=== PATIENT | male | born 1985 | race Caucasian/White ===

== ENCOUNTER 2022-11-18 15:04 | Outpatient (CLI) | payer OTHER, SELFPAY ==
--- NOTE | 2022-11-18 15:28 | ECG_ITS ---
Measurements Intervals [place] Rate: 79 P: WI: 0 QRS: 5 QRSD: 87 T: 10 QT: 365 QTc: 420 Interpretive Statements SINUS RHYTHM MINIMAL VOLTAGE CRITERIA FOR LVH, CONSIDER NORMAL VARIANT [MEETS CRITERIA IN ONE OF: R(aVL), S(V1), R(V5), R(V5/V6)+S(V1)] NO PREVIOUS ECG AVAILABLE FOR COMPARISON Electronically Signed On 11-19-2022 12:11:14 CDT by Adalberto Kenney M.D.
== END 2022-11-18 15:05 | disposition home or self-care (01) ==
PROVIDERS: PCP Internal Medicine; Visit Provider Surgery
DX: E78.00 Pure hypercholesterolemia, unspecified (principal); K40.90 Unilateral inguinal hernia, without obstruction or gangrene, not specified as recurrent
CPT/HCPCS: 36415; 86850; 86900; 86901; 93005

== ENCOUNTER 2022-11-20 00:57 | Day surgery (SDC) | payer OTHER, SELFPAY ==
[2022-11-14 08:37] VITALS: BMI 46.7
--- NOTE | 2022-11-14 08:41 | PC.NURSE ---
Report to the Outpatient Waiting Room, entrance under the green pavilion located off [facility], at time 11:00 on date 11/20/22. Planned Procedure Time: 12:00. Time changes happen often and if your time is changed the preop area will call you the afternoon before. - You and your visitor will be asked to self-screen and do not enter if you have any COVID symptoms. - A mask is optional within the hospital at this time. Patients may have clear liquids (water, carbonated beverages, clear teas, apple juice) until 3 hours prior to surgery (10:00) with a maximum of 20 ounces. - No food from midnight until time of surgery Take the following medications with a SIP of water the morning of surgery: N/A DO NOT STOP ANY OF YOUR OTHER PRESCRIPTION MEDICATIONS PRIOR TO SURGERY ?EXCEPT THE FOLLOWING Medications to discontinue per physician: N/A Date to take last dose: N/A Please no make-up, nail scottish, hairspray, perfume, deodorant, or body powder the day of surgery. No jewelry (including any body piercings) or valuables the day of surgery, leave them at home. Please take a shower or bath the night before, or the morning of, surgery with an antibacterial soap (HIBICLENS). Wear comfortable, loose fitting clothing. - Jewelry must be removed prior to entering the operating room. Rings and piercings that are not removed may be cut off. - The hospital will not accept responsibility for valuables. - Please leave all valuables, including medications, at home the day of surgery. If you are going home after surgery, a licensed van cdl driver must drive you home. - NO public transportation without another adult if you receive anesthesia. - We recommend that an adult stay with you for 24 hours following discharge. - We also recommend that you do not drive, make important decision, drink alcoholic beverages, or take any drugs that were not prescribed by your health care provider for at least 24 hours after your discharge time. Follow any additional instructions given to you from your surgeon. If you or anyone in your household have experienced Covid symptoms in the past week, please notify your surgeon or the nurse liaison at the phone number below for possible testing. Telephone instructions given to PT - HARIKA LENZ and asked if any additional questions and then verbalized understanding. Patient advised to call surgeon office or pre surgery nurse liaison [phone] if any additional questions.
[2022-11-20] VITALS (11 sets, daily range): BP systolic 121–164; BP diastolic 66–93; PULSE 80–107; RESP 16–22; TEMP 35.3–37.3; O2SAT 93–100
[2022-11-20] MEDS: LACTATED RINGERS 1,000 ML 30 ML IV CONT ×2 (12:00→17:09)
[2022-11-20] MEDS: KETOROLAC 15 MG/ML VIAL (*BKC) IV PUSH (12:00)
[2022-11-20] MEDS: ACETAMINOPHEN 500 MG TABLET 1000 MG PO (12:00)
--- NOTE | 2022-11-20 12:20 | P.PNAN_ITS ---
Anes - Initial Pre Proc Eval Procedure: Operation Date: 11/20/22 13:00 Proposed Procedures p Laparoscopic Right Inguinal Hernia Repair with Mesh, Davinci Assisted - Keyur Hanks DO Date/Time: 11/20/22 12:20 Surgeon: Keyur Hanks DO Pre Op Diagnosis: Rt Ing Hernia Patient Data Age: 37 Gender: M Height: 1.78 m Weight: 148 kg Allergies Allergy/AdvReac Type Severity Reaction Status Date / Time No Known Drug Allergies Allergy Mild Unknown Verified 11/14/22 08:36 Home Medications Medication Instructions Recorded Confirmed Type No Home Medications 01/15/19 11/14/22 History Patient hx anesthesia problems: none Family hx anesthesia problems: none Results Review: All pre-operative results and documents have been reviewed as part of the pre- operative evaluation. 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 Informed Consent: The patient's anesthetic plan and its attendant risks and benefits were discussed with the patient/family/POA. Questions were solicited and answers provided to the satisfaction of the patient/family/POA.
--- NOTE | 2022-11-20 12:28 | WPDHPUPDATE1 ---
History and Physical Update Update Date/Time: 11/20/22 12:28 History and Physical has been reviewed, including an updated exam of the patient. There are NO changes in the patient's condition. Risks, benefits, and alternatives have been discussed and questions answered. Patient agrees to proceed with procedure.
--- NOTE | 2022-11-20 12:29 | PM.IMHP ---
H&P: HPI History of Present Illness Date/Time: 11/20/22 12:29 Chief Complaint: Right inguinal hernia Narrative: This is a 37-year-old man who presents for right inguinal hernia repair. He reports no changes since last seen in the office. Review of Systems Review of Systems: All systems reviewed & are unremarkable except as noted in HPI and below Constitutional: Constitutional: Denies chills, Denies fever(s), Denies headache(s) and Denies weight loss Eyes: Eyes: Denies change in vision ENT: Denies dizziness, Denies headache(s), Denies neck mass and Denies throat swelling Cardiovascular: Cardiovascular: Denies chest pain, Denies lightheadedness and Denies dyspnea Respiratory: Respiratory: Denies cough, Denies dyspnea and Denies wheezing Gastrointestinal: Gastrointestinal: Denies abdominal pain, Denies change in bowel habits, Denies nausea and Denies vomiting Genitourinary: Genitourinary: Denies hematuria and Denies dysuria Musculoskeletal: Musculoskeletal: Reports as per HPI Integumentary/Breasts: Skin/Breast: Reports as per HPI Neurologic: Denies dizziness and Denies headache(s) Allergic/Immunologic: Allergic/Immunologic: Denies throat swelling and Denies wheezing PMFSH Past Medical History Medical History (Updated 11/20/22 @ 12:24 by Joseph Sutherland MD) GERD (gastroesophageal reflux disease) Hyperlipidemia Morbid obesity Snoring Family History Family History Other Cerebrovascular accident Hypertension Social History Social History Smoking status: Never smoker Alcohol intake: current Alcohol use details: VERY RARE Substance use: current Substance use type: marijuana Living arrangements: with family Occupation/Education: occupation 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 Gender identity (if verbalized by the patient): Male Spiritual care concerns: No Meds Home Medications and Allergies Home Medications Medication Instructions Recorded Confirmed Type No Home Medications 01/15/19 11/20/22 History Allergies Allergy/AdvReac Type Severity Reaction Status Date / Time No Known Drug Allergies Allergy Mild Unknown Verified 11/20/22 12:27 Exam Const: General: no acute distress and alert Orientation/consciousness: patient oriented x3 HENMT: Head: normocephalic and atraumatic Ears: hearing grossly normal bilaterally Face/Nose/Sinus: Normal nares present Mouth: Yes Normal oral and palatal mucosa present Eyes: Periorbital: periorbital findings normal Sclera: sclerae normal EOM: EOMs intact bilaterally Neck: Neck: normal visual inspection, no lymphadenopathy and trachea midline Chest: Chest palpation & inspection: normal inspection of the chest Resp: Effort & Inspection: normal respiratory effort Auscultation: clear to auscultation bilaterally Cardio: Jugular venous distension: no JVD Rate: regular rate Rhythm: regular rhythm Heart sounds: S1 normal heart sound present and S2 normal heart sound present Peripheral pulses: Peripheral pulses 2+ throughout GI: Inspection: normal to inspection GI Palp: Yes Soft to palpation, No Tenderness to palpation present (GI), No Guarding due to palpation present (GI) and No Rebound tenderness present Percussion: Yes normal to percussion Auscultation: normal bowel sounds : General: Yes no CVA tenderness Scrotum: inguinal hernia on the right Back/Spine/Pelvis: Back: no CVA tenderness Neuro: General: patient oriented x3, no focal motor deficits and CN's II-XI intact bilaterally Cognition (Neuro): normal cognition Speech: normal speech Motor exam (neuro): 5/5 motor strength present throughout Extrem: General: capillary refill normal and no clubbing, cyanosis or edema Assessment and Plan Assessment and plan (1) Right inguinal hernia: Code(s): K40.90 - Unilateral inguina
[2022-11-20] MEDS: ceFAZolin 2 GM/D5W 50 ML 2 GM/50 ML BAG IVPB ×2 (13:04→20:30)
[2022-11-20] MEDS: ceFAZolin 1 GM/NS 50 ML 1 GM/50 ML BAG IVPB (13:14)
[2022-11-20] MEDS: BUPIVACAINE/EPINEPHRINE 0.5% 50 ML VIAL 30 ML INFILTRATE (13:40)
--- NOTE | 2022-11-20 15:59 | WPDURCON ---
Assessment and Plan Assessment and plan (1) Laceration of bladder: Code(s): S37.23XA - Laceration of bladder, initial encounter Status: Acute Assessment and Plan: Intraoperative robotic assisted repair of cystotomy Urology Consult Note HPI Date Seen: 11/20/22 Time Seen: 16:00 Requesting Physician: Keyur Hanks DO Primary Care Provider: Horacio Mtz, MD Consult Narrative Reason for consult: Intraoperative cystotomy Narrative: Lalo Fair is a 37 year old male was undergoing a robotic assisted right inguinal hernia repair. He had significant adhesions of his bladder to the inguinal area. It was noted by Dr. Fink that there was a cystotomy during the dissection. It measured 2-3 inches. I am asked to evaluate and performed the closure of this intraoperatively. 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
--- NOTE | 2022-11-20 16:02 | W.PM.PROC2 ---
Procedure Note - Detailed Date of Procedure 11/20/22 Pre-op Diagnosis Rt Ing Hernia-cystotomy/bladder laceration Post-op Diagnosis Same Procedure Performed Robotic assisted closure of cystotomy Surgeon Vinnie Narayan MD Anesthesia General Description of Procedure Patient is undergoing a robotic assisted hernia repair with mesh. It was noted during the dissection that he had a cystotomy. A mass to close this area. Patient is already under anesthetic. At this point time a 2-3 cm laceration/cystotomy was noted near the dome of the bladder. He had extensive fibrotic tissue and fat around dome of the bladder. I dissected off and trimmed some of this. The cystotomy was visualized. Daniels catheter had been placed with the balloon visible near the bladder neck. The closure was then performed a 2 layer closure. I used 3-0 V lock suture in a running fashion. This encompasses the muscle and mucosa of the bladder. The 2nd line of closure encompass the fat and some muscle externally. The bladder was filled with 300 cc of indigo colored irrigation. There was no evidence of extravasation. At this point time his hernia repair was to be completed. This will be dictated separately. Patient will be kept overnight. A cystogram will be performed in approximately 10 days. If there was no extravasation the catheter can be removed. This completes dictation please send a copy of this op note to my office Estimated Blood Loss 0 Drains Yes (Daniels catheter) Packing No Pathology None sent Complications No immediate complications Condition Stable Disposition PACU
--- NOTE | 2022-11-20 16:58 | W.PM.PROC2 ---
Procedure Note - Detailed Date of Procedure 11/20/22 Pre-op Diagnosis Right inguinal hernia Post-op Diagnosis Other (Incarcerated right indirect inguinal hernia, bladder laceration) Procedure Performed Laparoscopic incarcerated right inguinal hernia repair with mesh, da Rose assisted Surgeon Keyur Hanks, DO Anesthesia General and Local (0.5% bupivacaine with epinephrine) Indications This is a 37-year-old man who presented with a right inguinal hernia that he 1st noticed several years ago. It was becoming progressively larger. He does notice some discomfort after work when he is doing a lot of lifting, but in general does not have a lot of pain with this. He was having some urinary difficulties off and on as well. He was found to have a large right inguinal hernia extending into his scrotum. Discussions were made with the patient about treatment options and decision was made to proceed with robotic assisted laparoscopic right inguinal hernia repair with mesh. Findings Laparoscopic right inguinal hernia repair was performed. The patient was found to have a very large indirect right inguinal hernia. The herniated contents were difficult to reduce when patient was under anesthesia. Upon inspecting the abdomen laparoscopically, there did not appear to be any bowel incarcerated with the hernia, however the hernia sac was very tethered into the hernia defect. As I was taking down the hernia sac there did appear to be a large amount of preperitoneal fat which was making it difficult to identify the other structures near the hernia sac. I eventually was able to identify the testicular vessels and vas deferens and dissect these off of the hernia sac. I still was unable to get the hernia sac completely reduced and as I was continuing to carefully dissect this area I did inadvertently create a cystotomy on a portion of the bladder that was incarcerated within the hernia defect. After this was noted I called Urology to evaluate the patient. I continued to reduce the hernia sac and had this completely reduced by the time urology came in to evaluate patient. Dr. Narayan then proceeded with robotic repair of cystotomy. Please refer to his operative report for his details. I then chose to complete the hernia repair once he was done. An extra-large right 3DMax mid mesh was placed within the preperitoneal pocket. This was secured using 3-0 Vicryl simple interrupted sutures. The peritoneal flap was somewhat torn from all the dissection of the hernia sac and repair of cystotomy. I closed the peritoneal flap with multiple 3-0 V lock running absorbable sutures. The hernia sac that was excised to clear off the bladder for repair was removed and sent to the lab for pathology. Description of Procedure Procedure as well as risks, benefits, and alternatives were discussed with the patient. Written consent was obtained and placed in chart prior to procedure. Patient was brought back to surgical suite. He was placed supine on operating table. Time-out was done to confirm patient and procedure. He was then intubated by Anesthesia Department. His abdomen was prepped and draped in sterile fashion using chlorhexidine prep. 0.5% bupivacaine with epinephrine was infiltrated at each location for incision. An 8 mm incision was made in the left lateral abdomen, and a 5 mm Optiview trocar was advanced through the abdominal layers under direct visualization. Once inside the abdominal cavity, carbon dioxide insufflation was used to create a pneumoperitoneum. A camera was inserted and the abdominal cavity was inspected. The patient was placed in slight Trendelenburg position. An 8 millimeter incision was made on the right lateral abdomen and an 8 millimeter trocar was inserted under direct visualization. Another 8 millimeter incision was made just superior to the umbilicus and an 8 millimeter trocar was inserted under direct visualization. The 5 mm port was then removed and this
--- NOTE | 2022-11-20 17:42 | SUR.PHASEI ---
1740-Dr. Hanks at [facility] to talk with pt.
--- NOTE | 2022-11-20 18:21 | ADMGEN ---
This patient, Lalo Fair, was admitted to Medical Room 250-01. Patient/family oriented to hospital policies and general routines including ID bracelet, bed and alarms, visiting hours, pain management, procedures, bathroom and other care routines, personal items, smoking policy, room service/diet, and visiting hours. Information on how to activate the Rapid Response Team has been discussed. Patient/Family are encouraged to report perceived risks to care and to ask questions if they do not understand what they are told or what they should do.
[2022-11-20] MEDS: LACTATED RINGERS 1,000 ML 100 ML IV CONT (18:45)
[2022-11-20] MEDS: PROPARACAINE HCL 0.5% 15 ML OPHTH SOLN 1 DROP EACH EYE (21:59)
[2022-11-20] MEDS: DICLOFENAC SODIUM 0.1% OPHTH SOLN 2.5 ML BOTTLE 1 DROP EACH EYE (22:02)
[2022-11-20] MEDS: MOXIFLOXACIN HCL 0.5% 3 ML OPHTH SOLN 1 DROP EACH EYE (22:02)
[2022-11-20] MEDS: HYDROcodone/acetaminophen (*CRX) 10-325 MG TABLET 1 TAB PO (22:05)
[2022-11-21 03:55] VITALS: BP 127/72; PULSE 90; RESP 18; TEMP 37; O2SAT 95
[2022-11-21] MEDS: ceFAZolin 2 GM/D5W 50 ML 2 GM/50 ML BAG IVPB ×2 (05:15→12:55)
[2022-11-21] MEDS: MOXIFLOXACIN HCL 0.5% 3 ML OPHTH SOLN 1 DROP EACH EYE ×2 (05:19→13:42)
[2022-11-21] MEDS: DICLOFENAC SODIUM 0.1% OPHTH SOLN 2.5 ML BOTTLE 1 DROP EACH EYE ×2 (05:19→13:41)
[2022-11-21 05:40] LABS: Hematocrit 40.4 % (42.0-52.0); Hemoglobin 13.7 g/dL (14.0-18.0); Mean Corpuscular HGB Conc 33.9 g/dl (32-36); Mean Corpuscular Hemoglobin 30.8 pg (26-34); Mean Corpuscular Volume 90.8 fl (80-100); Mean Platelet Volume 9.9 fl (7.4-10.4); Platelet Count Result 276 k/mm3 (150-375); Red Blood Count 4.45 M/mm3 (4.6-6.20); Red Cell Distribution Width 13.1 % (11.5-14.5); White Blood Count 10.6 K/mm3 (4.5-10.0)
[2022-11-21 05:52] LABS: Anion Gap 6 mmol/L (8-16); Blood Urea Nitrogen 9 mg/dL (9-20); Calcium 8.5 mg/dL (8.4-10.2); Carbon Dioxide 22 mmol/L (22-30); Chloride 109 mmol/L (98-107); Estimated CRCL calculation 184 ml/min; Estimated Glomerular Filt Rate > 60; Glucose 111 mg/dL (65-110); Sodium 137 mmol/L (137-145)
[2022-11-21 07:45] VITALS: BP 137/73; PULSE 96; RESP 17; TEMP 36.7; O2SAT 96
[2022-11-21] MEDS: HYDROcodone/acetaminophen (*CRX) 5-325 MG TABLET 1 TAB PO ×2 (08:31→17:10)
[2022-11-21] MEDS: polyethylene glycoL 3350 17 GM POWD.PACK PO (08:31)
[2022-11-21 09:45] VITALS: O2SAT 96
[2022-11-21 10:46] VITALS: O2SAT 95
[2022-11-21 12:26] VITALS: BP 148/84; PULSE 87; RESP 17; TEMP 35.8; O2SAT 96
--- NOTE | 2022-11-21 12:37 | PM.DS ---
DS: Admitting Diagnosis Discharge Date 11/21/2022 Admitting Diagnosis Incarcerated right inguinal hernia, bladder laceration DS: Discharge Diagnosis Discharge Diagnosis (1) Incarcerated right inguinal hernia: Code(s): K40.30 - Unilateral inguinal hernia, with obstruction, without gangrene, not specified as recurrent Status: Acute (2) Laceration of bladder: Qualifiers: Encounter type: initial encounter Qualified Code(s): S37.23XA - Laceration of bladder, initial encounter Code(s): S37.23XA - Laceration of bladder, initial encounter Status: Acute DS: Summary Hospital Course Reason for hospitalization: Recovery after laparoscopic incarcerated right inguinal repair Hospital Course: This is a 37-year-old man who presented for robotic assisted laparoscopic right inguinal hernia repair on 11/20/2022. The patient was found to have a very large incarcerated right inguinal hernia containing a portion of his bladder. Surgery was very difficult and a bladder laceration was encountered during the surgery. Dr. Narayan with Urology was consulted intraoperatively and he underwent robotic assisted closure of cystotomy. A Daniels catheter was left in place and decision was made to place patient in outpatient extended recovery after the procedure. On postop day 1 he was doing well and tolerating a diet. He was having some incisional pain which was controlled with oral pain meds. He was given instruction on taken care of the Daniels catheter and follow-up was arranged with urology. He was discharged home on 11/21/2022. Status at Discharge Functional status at discharge: independent ambulation Overall status at discharge: patient is progressing back to baseline Time Spent with Patient Time attestation: Total time spent providing and/or coordinating discharge services: Time spent: Less than 30 minutes Exam Const: General: no acute distress and alert Orientation/consciousness: patient oriented x3 Resp: Effort & Inspection: normal respiratory effort Auscultation: clear to auscultation bilaterally Cardio: Rate: regular rate Rhythm: regular rhythm GI: Inspection: non-distended and incision (Intact with glue) GI Palp: Yes Soft to palpation and Yes Tenderness to palpation present (GI) (incisional) Auscultation: normal bowel sounds : Scrotum: other (Slight scrotal swelling, expected postop) DS: Data Data Completed and Pending Pending studies at discharge: Pending at discharge 11/20/22 16:50 Surgical [PTH] Routine Labs on day of discharge: Labs from last 24 hours 11/21/22 05:14 WBC 10.6 H RBC 4.45 L Hgb 13.7 L Hct 40.4 L MCV 90.8 MCH 30.8 MCHC 33.9 RDW 13.1 Plt Count 276 MPV 9.9 Sodium 137 Potassium 4.0 Chloride 109 H Carbon Dioxide 22 Anion Gap 6 L BUN 9 Creatinine 0.70 Estim Creat Clear Calc 184 Estimated GFR > 60 Glucose 111 H Calcium 8.5 Discharge Plan Discharge Patient Disposition: Home, Self-Care Discharge Instructions: DISCHARGE INSTRUCTION SHEET FOR HERNIA, GALLBLADDER AND APPENDIX SURGERIES DR. KRUSE PATIENT TO TAKE HOME 1. May shower, no soaking in bath x 2weeks. 2. Call office for: Wound increasingly painful or bleeding Vomiting Fever of greater than 101 degrees 3. If no bowel movement for three days, take 1 oz. (30 ml) Milk of Magnesia or MiraLax 17g 1 to 2 times daily. 4. No heavy lifting > 10-15 pounds x 2-3 weeks for hernia repairs and 2 weeks for laparoscopic cholecystectomy or appendectomy. 5. No driving for 3 days or while taking narcotic pain medications. 6. Ice to surgical site for 48 hours (30 min on, then 30 min off). 7. Up walking 10-30 minutes three times per day. 8. Resume previous home medications. 9. Follow-up 10-14 days in office for wound check or as previously scheduled. ([phone]) 10. Oral pain medications prescription to
[2022-11-21] MEDS: HYDROcodone/acetaminophen (*CRX) 10-325 MG TABLET 1 TAB PO (12:55)
--- NOTE | 2022-11-21 13:51 | WPDANESPN ---
Anes - Prog Note Post-Op Date/Time: 11/21/22 13:51 Cardiovascular status: normal Respiratory status: normal Airway patency: baseline Mental status: baseline Post-Op hydration status: normal Vital Signs: Last Vital Signs Temp 35.8 C L 11/21/22 12:26 Pulse 87 11/21/22 12:26 Resp 17 11/21/22 12:26 BP 148/84 H 11/21/22 12:26 Pulse Ox 96 11/21/22 12:26 O2 Del Method Room Air 11/21/22 10:46 O2 Flow Rate 6 11/20/22 17:20 Pain Score (VAS): 03/29 I/O: Intake & Output 11/20/22 11/21/22 11/21/22 23:59 07:59 15:59 Intake Total 100 300 600 Output Total 600 400 Balance 100 -300 200 Laboratory Tests 11/21/22 05:14 11/21/22 05:14 11/21/22 05:14 WBC 10.6 H RBC 4.45 L Hgb 13.7 L Hct 40.4 L MCV 90.8 MCH 30.8 MCHC 33.9 RDW 13.1 Plt Count 276 MPV 9.9 Sodium 137 Potassium 4.0 Chloride 109 H Carbon Dioxide 22 Anion Gap 6 L BUN 9 Creatinine 0.70 Estim Creat Clear Calc 184 Estimated GFR > 60 Glucose 111 H Calcium 8.5 Post-procedural complaints: none Patient Feedback: Patient satisfied with anesthetic care. Other Findings: R eye irritated with sandpaper feeling last night, eye gtts ordered and pt states irritation has resolved
[2022-11-21 13:54] VITALS: BP 116/62; PULSE 99; RESP 18; TEMP 37.2; O2SAT 94
--- NOTE | 2022-11-21 16:03 | WPDUROPN2 ---
Progress Note: A&P Assessment and Plan (1) Incarcerated right inguinal hernia: Code(s): K40.30 - Unilateral inguinal hernia, with obstruction, without gangrene, not specified as recurrent Status: Acute (2) Laceration of bladder: Qualifiers: Encounter type: initial encounter Qualified Code(s): S37.23XA - Laceration of bladder, initial encounter Code(s): S37.23XA - Laceration of bladder, initial encounter Status: Acute Assessment and Plan: Keep goodwin catheter in place, get a cystogram next week, then catheter to be removed in office with Dr. Bo. No further evaluation needed. Ok to discharge at anytime. Subjective Subjective Date/Time Seen: 11/21/22 16:03 Post Op day: 1 Interval history: Robotic Assisted Cystotomy secondary to bladder laceration. Creatinine is 0.70. Pt. doing well tolerating pain, urine clear and draining to gravity in his bag. Review of Systems Review of Systems: All systems reviewed & are unremarkable except as noted in HPI and below Cardiovascular: Cardiovascular: Denies chest pain Respiratory: Respiratory: Reports no additional respiratory complaints Gastrointestinal: Gastrointestinal: Reports abdominal pain, Denies nausea and Denies vomiting Genitourinary: Genitourinary: Denies hematuria Exam Const: General: cooperative and comfortable Resp: Effort & Inspection: normal respiratory effort Cardio: Rate: regular rate GI: GI Palp: Yes Soft to palpation and Yes Tenderness to palpation present (GI) (RLQ) : General: Yes no CVA tenderness Urinary Catheter: Urinary Catheter: patent and draining and urine clear Extrem: Right lower extremity: edema Left lower extremity: edema Objective Data Vital Signs Vital Signs: Vital Signs - 24 hr 11/20/22 17:09 11/20/22 17:20 11/20/22 17:35 Temperature 99.1 F Pulse Rate 98 103 H 107 H Respiratory Rate 22 H 22 H 18 Blood Pressure 128/67 121/66 146/73 H Pulse Oximetry 93 97 93 Oxygen Delivery Simple Face Mask Simple Face Mask Room Air Oxygen Flow Rate 6 6 11/20/22 17:50 11/20/22 18:02 11/20/22 18:58 Temperature 95.5 F L Pulse Rate 101 H 96 99 Respiratory Rate 16 17 16 Blood Pressure 126/72 126/70 127/73 Pulse Oximetry 94 94 93 Oxygen Delivery Room Air Room Air Oxygen Flow Rate 11/20/22 18:59 10/04/23 19:07 11/20/22 19:55 Temperature 98.7 F 97.4 F L Pulse Rate 93 98 Respiratory Rate 16 18 Blood Pressure 122/76 130/83 Pulse Oximetry 95 97 Oxygen Delivery Room Air Oxygen Flow Rate 11/20/22 20:00 11/20/22 23:55 11/21/22 03:55 Temperature 98.1 F 98.6 F Pulse Rate 86 86 90 Respiratory Rate 18 18 18 Blood Pressure 134/73 127/72 Pulse Oximetry 98 97 95 Oxygen Delivery Room Air Oxygen Flow Rate 11/21/22 07:45 11/21/22 09:45 11/21/22 10:46 Temperature 98.0 F Pulse Rate 96 Respiratory Rate 17 Blood Pressure 137/73 Pulse Oximetry 96 96 95 Oxygen Delivery Room Air Room Air Oxygen Flow Rate 11/21/22 12:26 11/21/22 13:54 Temperature 96.5 F L 98.9 F Pulse Rate 87 99 Respiratory Rate 17 18 Blood Pressure 148/84 H 116/62 Pulse Oximetry 96 94 Oxygen Delivery Oxygen Flow Rate Intake/Output Intake/Output: Intake & Output 11/18/22 11/19/22 11/20/22 11/21/22 23:59 23:59 23:59 23:59 Intake Total 200 900 Output Total 1000 Balance 200 -100 Meds/Results Medications: Active Medications Generic Name Dose Route Start Last Admin Trade Name Freq PRN Reason Stop Dose Admin Hydrocodone Bitart/Acetaminophen 1 tab 11/20/22 18:10 11/21/22 08:31 Hydrocodone/Acetaminophen (*Crx) 5-325 Mg Tablet PO 1 tab Q4H PRN Administration Pain Rated 4-6 Hydrocodone Bitart/Acetaminophen 1 tab 11/20/22 18:10 11/21/22 12:55 Hydrocodone/Acetaminophen (*Crx) 10-325 Mg Tablet PO 1 tab Q6H PRN Administration Pain Rated 7-10 Artificial Tears 1 drop 11/20/22 21:29 Artificial Tears Ophth Soln 15 Ml
== END 2022-11-21 17:50 | disposition home or self-care (01) ==
LOC: ANHSURGERY 11:07 → ANH2MED 18:12
PROVIDERS: Urology; PCP Internal Medicine; Visit Provider Surgery
PROC: 8E0Y4CZ Robotic Assisted Procedure of Lower Extremity, Percutaneous Endoscopic Approach (ICD-10-PCS; CPT 49650; principal; 2022-11-20 13:00)
PROC: 0TBB8ZX Excision of Bladder, Via Natural or Artificial Opening Endoscopic, Diagnostic (ICD-10-PCS; CPT 52204; 2022-11-20 13:00)
DX: K40.30 Unilateral inguinal hernia, with obstruction, without gangrene, not specified as recurrent (principal); N99.72 Accidental puncture and laceration of a genitourinary system organ or structure during other procedure; K21.9 Gastro-esophageal reflux disease without esophagitis; E78.5 Hyperlipidemia, unspecified; E66.01 Morbid (severe) obesity due to excess calories; Z68.42 Body mass index [BMI] 45.0-49.9, adult; F12.90 Cannabis use, unspecified, uncomplicated
CPT/HCPCS: 49650; 51999; S2900 ×2; 36415; 80048; 85027; 88302; A9270; C1781; J0330; J0690; J1100; J1170; J1885; J2250; J2405; J2704; J2765; J3010; J7120; Q9968

== ENCOUNTER 2022-11-27 10:34 | Outpatient (CLI) | payer OTHER, SELFPAY ==
--- NOTE | ~2022-11-27 | XR_ITS ---
EXAMINATION: XR cystogram DATE: 11/27/2022 11:29 INDICATION: Bladder laceration. TECHNIQUE: Water-soluble contrast was gravity-infused through the patient's Daniels catheter. Multiple fluoroscopic images were obtained. Fluoroscopy exposure time was 0.1 minutes. The total number of darrick ges was 7. COMPARISON: None. FINDINGS: There is a Daniels catheter in expected position. There is irregularity of the bladder dome c orrelating with the site of cystotomy repair. There is no extraluminal leakage of contrast. No ureter al reflux. IMPRESSION: 1. No extraluminal leakage of contrast. Reviewed, dictated and finalized at location A.
== END 2022-11-27 10:35 | disposition home or self-care (01) ==
PROVIDERS: PCP Internal Medicine; Visit Provider Urology
DX: S37.23XA Laceration of bladder, initial encounter (principal); X58.XXXA Exposure to other specified factors, initial encounter
CPT/HCPCS: 51600; 74430; Q9967